=== PATIENT | male | born 1955 | race Caucasian/White ===

== ENCOUNTER → 2018-04-05 | Outpatient (CLI) | payer OTHER ==
[2018-04-05 16:00] LABS: Basophils # (auto) 0 uL; Basophils % (auto) 0.6 % (0.0-2.0); Eosinophils # (auto) 0.3 uL; Eosinophils % (auto) 3.8 % (0.0-7.0); Hematocrit 46.4 % (41.0-53.0); Hemoglobin 15.4 g/dL (13.5-17.5); Lymphocytes # (auto) 2.1 uL; Lymphocytes % (auto) 28.6 % (10.0-50.0); Mean Corpuscular Hemoglobin 30.1 pg (28.0-32.0); Mean Corpuscular Hgb Conc. 33.1 g/dL (32.0-36.0); Mean Corpuscular Volume 90.9 fL (80.0-100.0); Monocytes # (auto) 0.8 uL; Monocytes % (auto) 11.1 % (0.0-12.0); Neutrophils # (auto) 4.1 uL; Neutrophils % (auto) 55.9 % (37.0-80.0); Nucleated Red Blood Cells % 0.1 %; Platelet Count (auto) 281 10^3/uL (140-450); Red Blood Cells 5.11 10^6/uL (4.5-5.90); Red Cell Distribution Width 13.5 % (11.8-14.3); White Blood Cell 7.3 10^3/uL (4.4-10.8)
[2018-04-05 16:22] LABS: Albumin 3.2 g/dL (3.4-5.0); BUN/Creatinine Ratio 13.6; Calcium 10.1 mg/dL (8.5-10.1); Potassium 4.6 mmol/L (3.5-5.1)
[2018-04-05 16:26] LABS: Bilirubin, Total 1.5 mg/dL (0.2-1.0); Total Protein 9.3 g/dL (6.4-8.2)
== END | disposition home or self-care (01) ==
LOC: LAB 15:28
PROVIDERS: ATTEND Internal Medicine
DX: Z12.5 Encounter for screening for malignant neoplasm of prostate (principal); Z12.11 Encounter for screening for malignant neoplasm of colon; J18.0 Bronchopneumonia, unspecified organism; R63.0 Anorexia
CPT/HCPCS: 36415; 80053; 80061; 82306; 84153; 84443; 85025; 85652

== ENCOUNTER 2018-04-07 09:51 | Inpatient (IN) | payer OTHER ==
[~2018-04-07] VITALS: Ht 188 cm; Wt 102.1 kg
[2018-04-07] MEDS ORDERED: HEPARIN IN NS 1000U/500ML (2UNIT/ML) 500 ML BAG/KIT IV ONE (10:15)
[2018-04-07] MEDS ORDERED: SODIUM CHLORIDE 0.9% 1,000 ML IV ONE (10:15)
[2018-04-07 10:34] LABS: Basophils # (auto) 0 uL; Basophils % (auto) 0.7 % (0.0-2.0); Eosinophils # (auto) 0.2 uL; Eosinophils % (auto) 3.3 % (0.0-7.0); Hematocrit 40.3 % (41.0-53.0); Lymphocytes # (auto) 1.3 uL; Lymphocytes % (auto) 20.7 % (10.0-50.0); Mean Corpuscular Hemoglobin 30.7 pg (28.0-32.0); Mean Corpuscular Hgb Conc. 34.7 g/dL (32.0-36.0); Mean Corpuscular Volume 88.6 fL (80.0-100.0); Monocytes # (auto) 0.6 uL; Monocytes % (auto) 9.8 % (0.0-12.0); Neutrophils # (auto) 4.2 uL; Neutrophils % (auto) 65.5 % (37.0-80.0); Platelet Count (auto) 280 10^3/uL (140-450); Red Blood Cells 4.55 10^6/uL (4.5-5.90); Red Cell Distribution Width 13.4 % (11.8-14.3); White Blood Cell 6.4 10^3/uL (4.4-10.8)
[2018-04-07 10:53] LABS: Albumin 2.7 g/dL (3.4-5.0); Anion Gap 8 (5-15); Blood Urea Nitrogen 16 mg/dL (7-18); Calcium 8.8 mg/dL (8.5-10.1); Carbon Dioxide 24 mmol/L (21-32); Chloride 100 mmol/L (98-107); Glucose 111 mg/dL (74-106); Potassium 3.9 mmol/L (3.5-5.1); Sodium 132 mmol/L (136-145)
[2018-04-07 11:00] LABS: Alanine Aminotransferase 55 U/L (16-61); Alkaline Phosphatase 140 U/L (45-117); Aspartate Aminotransferase 39 U/L (15-37); BUN/Creatinine Ratio 13.1; Bilirubin, Total 1.2 mg/dL (0.2-1.0); GFR African American 77 mL/min; GFR Non-African American 64 mL/min; INR 0.96 (0.9-1.15); Partial Thromboplastin Time 28.6 sec (23.78-33.04); Prothrombin Time 10.3 sec (9.27-12.13); Total Protein 8.3 g/dL (6.4-8.2)
--- NOTE | 2018-04-07 15:05 | NUR ---
Respiratory note: ASSESSED PATIENT FOR PRN BREATHING TX, PATIENT IS AWAKE AND ALERT. NO RESPIRATORY DISTRESS NOTED OR STATED. PATIENT IS ON 2 L NASAL CANNULA, BREATH SOUNDS ARE CLEAR AND DIMINISHED. PATIENT IS AWARE OF PAGING RT FOR BREATHING TX. RN HANNAH NOTIFIED AND AWARE.
[2018-04-07] MEDS ORDERED: MORPHINE SULFATE 4 MG/ML SYR/VIAL IV PRN ×2 (15:30)
[2018-04-07] MEDS ORDERED: LACTULOSE 20Gm/30ML SOLN PO PRN (15:30)
[2018-04-07] MEDS ORDERED: LORazepam 0.5 MG TAB PO PRN (15:30)
[2018-04-07] MEDS ORDERED: TEMAZEPAM 15 MG CAP PO PRN (15:30)
[2018-04-07] MEDS ORDERED: PROMETHAZINE HCL 25 MG/ML 1ML IV PRN (15:30)
[2018-04-07] MEDS ORDERED: NITROGLYCERIN 0.4 MG SL TAB SL PRN (15:30)
[2018-04-07] MEDS ORDERED: ALBUTEROL SULF 2.5 MG/0.5ML(0.5%) NEB SOLN NEB PRN (15:30)
[2018-04-07] MEDS ORDERED: HYDROcodone-ACET 5/325MG TAB PO PRN (15:30)
[2018-04-07] MEDS ORDERED: ACETAMINOPHEN 500 MG TAB PO PRN (15:30)
[2018-04-07] MEDS ORDERED: LEVOFLOXACIN 500MG 100 ML IV ONE (15:45)
[2018-04-07 16:19] VITALS: BP 128/69
[2018-04-07] MEDS: ENOXAPARIN SOD 100 MG/1 ML SYRINGE SC SCH (17:46)
--- NOTE | 2018-04-07 17:57 | NUR ---
RT NOTE PRN ASSESSMENT DONE NO DISTRESS NOTED PT BS CLEAR SATS 98%. PT DOES NOT WANT ANYU BREATHING TREATMENTS.
[2018-04-07 18:09] LABS: Urine Bacteria NONE SEEN /hpf (None Seen); Urine Blood Negative /uL (Negative); Urine WBC 1 /hpf (0 - 3)
[2018-04-07 18:15] LABS: Urine Specific Gravity > 1.050 (1.001-1.035)
[2018-04-07 20:00] VITALS: BP 132/67
--- NOTE | 2018-04-07 20:00 | NUR ---
Telemetry admit from ER BETTY SETHI admitted to Telemetry unit after SBAR received. Patient oriented to Emely Meza primary RN, unit, room, bed, and unit policies regarding patient care and visiting hours. Patient now on continuous telemetry monitoring, tele box # 20 and telemetry reading on arrival to unit is sinus rhythm. Patient placed on bedside oxygen, weighed by bedscale and encouraged to call if they need something. All questions and concerns addressed, patient verbalized understanding.
[2018-04-07 20:15] VITALS: BP 132/67
[2018-04-07 20:30] VITALS: BP 132/67
[2018-04-07] MEDS ORDERED: LEVO-28 PO (23:43)
[2018-04-08 04:56] VITALS: BP 121/62
[2018-04-08] MEDS: ENOXAPARIN SOD 100 MG/1 ML SYRINGE SC SCH ×2 (05:54→18:18)
[2018-04-08 06:42] LABS: Basophils # (auto) 0 uL; Basophils % (auto) 0.7 % (0.0-2.0); Eosinophils # (auto) 0.2 uL; Eosinophils % (auto) 4.3 % (0.0-7.0); Hematocrit 35.4 % (41.0-53.0); Lymphocytes # (auto) 1.4 uL; Lymphocytes % (auto) 27.1 % (10.0-50.0); Mean Corpuscular Hemoglobin 30.2 pg (28.0-32.0); Mean Corpuscular Hgb Conc. 33.9 g/dL (32.0-36.0); Mean Corpuscular Volume 89.3 fL (80.0-100.0); Monocytes # (auto) 0.5 uL; Monocytes % (auto) 10.6 % (0.0-12.0); Neutrophils % (auto) 57.3 % (37.0-80.0); Platelet Count (auto) 248 10^3/uL (140-450); Red Blood Cells 3.97 10^6/uL (4.5-5.90); Red Cell Distribution Width 13.4 % (11.8-14.3); White Blood Cell 5.2 10^3/uL (4.4-10.8)
[2018-04-08 07:10] LABS: Cholesterol 145 mg/dL (< 200); HDL Cholesterol 26 mg/dL (40-59); LDL Cholesterol 109 mg/dL (< 100); Triglycerides 115 mg/dL (< 150)
--- NOTE | 2018-04-08 07:33 | NUR ---
Patient stable at this time, vitals within normal. Endorsed care to Justyna CASTRO.
[2018-04-08 09:17] VITALS: BP 108/55
[2018-04-08] MEDS ORDERED: LEVOFLOXACIN 500MG 100 ML IV SCH (10:00)
[2018-04-08] MEDS: PANTOPRAZOLE 40 MG TAB PO SCH (10:15)
[2018-04-08] MEDS ORDERED: VANCOMYCIN PER PHARMACY 0 MG IV SCH (12:00)
[2018-04-08 13:03] VITALS: BP 111/65
[2018-04-08] MEDS: PIPERACILLIN-TAZOB 3.375GM 100 ML IV SCH ×2 (14:15→20:45)
[2018-04-08 14:29] LABS: BUN/Creatinine Ratio 11.7; Calcium 8.4 mg/dL (8.5-10.1); Potassium 3.9 mmol/L (3.5-5.1)
[2018-04-08] MEDS: VANCOMYCIN 1GM/250ML 250 ML IV SCH ×2 (16:02→23:22)
[2018-04-08 17:26] VITALS: BP 140/72
--- NOTE | 2018-04-08 19:18 | NUR ---
Vancomycin still infusing, notified Annabelle ALCANTARA RN and endorsed zosyn
--- NOTE | 2018-04-08 19:20 | NUR ---
Opening Shift Note Assumed care of patient, awake and alert, fully clothed in his own outdoors clothing with jacket wrapped around his head. No S/S of distress/SOB or pain. Pt sl. warm to touch, but afebrile. Instructed on POC and to call for assist PRN, will continue to monitor for changes PRN. Bed in low position; nurse call light in bed by pt.
--- NOTE | 2018-04-08 20:00 | NUR ---
Spoke with Jason, pharmacist, to alert her that Vancomycin just hung at end of day shift and just infused and is appearing in [facility] to be due at 1 a.m. Jason stated that it was not due at 1 a.m. but 1 p.m. This RN assured her it is posted for 0100. Jason again stated that it is due at 1300 and not to be given at 0100.
--- NOTE | 2018-04-08 20:50 | NUR ---
Zosyn infusing as infusion of Vancomycin delayed this infusion.
--- NOTE | 2018-04-08 22:10 | NUR ---
Pt education: Pt asking about Lipitor and his cholesterol. This RN instructing pt as to action/benefit of Lipitor. Pt inquired as to cholesterol level, so RN explained re. LDL and HDL using his lab results and effect this has. Pt voiced that he will start changing his diet; "I am only 62, so it's time I start making some changes." He asked more questions of this RN re. diet and began to make plans using information he received.
[2018-04-08] MEDS: ATORVASTATIN 20 MG TAB PO SCH (23:04)
[2018-04-09 05:13] VITALS: BP 109/67
[2018-04-09] MEDS: ENOXAPARIN SOD 100 MG/1 ML SYRINGE SC SCH ×2 (07:17→18:07)
[2018-04-09 07:18] LABS: Basophils # (auto) 0 uL; Basophils % (auto) 0.7 % (0.0-2.0); Eosinophils # (auto) 0.2 uL; Eosinophils % (auto) 3.8 % (0.0-7.0); Hematocrit 36.2 % (41.0-53.0); Hemoglobin 12.2 g/dL (13.5-17.5); Lymphocytes # (auto) 1.7 uL; Lymphocytes % (auto) 29.8 % (10.0-50.0); Mean Corpuscular Hemoglobin 30.1 pg (28.0-32.0); Mean Corpuscular Hgb Conc. 33.7 g/dL (32.0-36.0); Mean Corpuscular Volume 89.5 fL (80.0-100.0); Monocytes # (auto) 0.5 uL; Monocytes % (auto) 9.2 % (0.0-12.0); Neutrophils # (auto) 3.2 uL; Neutrophils % (auto) 56.5 % (37.0-80.0); Platelet Count (auto) 301 10^3/uL (140-450); Red Blood Cells 4.04 10^6/uL (4.5-5.90); Red Cell Distribution Width 13.3 % (11.8-14.3); White Blood Cell 5.6 10^3/uL (4.4-10.8)
[2018-04-09] MEDS: PIPERACILLIN-TAZOB 3.375GM 100 ML IV SCH ×5 (07:18→23:31)
[2018-04-09 07:22] LABS: Potassium 3.7 mmol/L (3.5-5.1)
[2018-04-09 07:26] LABS: BUN/Creatinine Ratio 9.8; Calcium 8.6 mg/dL (8.5-10.1)
[2018-04-09 08:43] VITALS: BP 125/63
[2018-04-09] MEDS: PANTOPRAZOLE 40 MG TAB PO SCH (10:29)
[2018-04-09] MEDS: VANCOMYCIN 1,250 MG in D5W 5% 250 ML IV SCH ×2 (10:29→21:56)
[2018-04-09] MEDS: IPRATROPIUM BROM 0.5 MG/2.5ML INH SOL NEB SCH ×2 (12:36→19:12)
[2018-04-09] MEDS: ALBUTEROL SULF 2.5 MG/0.5ML(0.5%) NEB SOLN NEB SCH ×2 (12:37→19:12)
[2018-04-09 13:00] VITALS: BP 115/66
[2018-04-09 17:00] VITALS: BP 103/56
--- NOTE | 2018-04-09 19:16 | NUR ---
Respiratory note: NO CPT AT THIS TIME, CONTRAINDICATED PER DIAGNOSIS
--- NOTE | 2018-04-09 19:50 | NUR ---
ASSUMED CARE, PT. AWAKE, NO C/O PAIN, NO SOB.
[2018-04-09] MEDS: ATORVASTATIN 20 MG TAB PO SCH (21:56)
[2018-04-09 22:00] VITALS: BP 117/58
[2018-04-10] VITALS (7 sets, daily range): BP systolic 96–144; BP diastolic 52–74
[2018-04-10] MEDS: IPRATROPIUM BROM 0.5 MG/2.5ML INH SOL NEB SCH ×4 (00:20→19:12)
[2018-04-10] MEDS: ALBUTEROL SULF 2.5 MG/0.5ML(0.5%) NEB SOLN NEB SCH ×4 (00:20→19:12)
[2018-04-10] MEDS: PIPERACILLIN-TAZOB 3.375GM 100 ML IV SCH ×4 (05:31→23:40)
[2018-04-10] MEDS: ENOXAPARIN SOD 100 MG/1 ML SYRINGE SC SCH ×2 (05:32→18:45)
[2018-04-10 06:19] LABS: Basophils # (auto) 0 uL; Basophils % (auto) 0.7 % (0.0-2.0); Eosinophils # (auto) 0.3 uL; Eosinophils % (auto) 5.3 % (0.0-7.0); Hematocrit 35.4 % (41.0-53.0); Hemoglobin 11.7 g/dL (13.5-17.5); Lymphocytes # (auto) 1.4 uL; Mean Corpuscular Hemoglobin 29.4 pg (28.0-32.0); Monocytes # (auto) 0.5 uL; Monocytes % (auto) 10.9 % (0.0-12.0); Neutrophils # (auto) 2.6 uL; Neutrophils % (auto) 54.1 % (37.0-80.0); Platelet Count (auto) 306 10^3/uL (140-450); Red Blood Cells 3.97 10^6/uL (4.5-5.90); Red Cell Distribution Width 13.4 % (11.8-14.3); White Blood Cell 4.9 10^3/uL (4.4-10.8)
[2018-04-10 06:42] LABS: BUN/Creatinine Ratio 7.4; Calcium 8.3 mg/dL (8.5-10.1); Potassium 3.6 mmol/L (3.5-5.1)
--- NOTE | 2018-04-10 07:30 | NUR ---
Opening Shift Note Assumed care of patient, awake and alert. No S/S of distress/SOB or pain reported at this time. Instructed on POC and to call for assist PRN, call light within reach, IV to left AC patent and benign, will continue to monitor for changes Q1hr and PRN.
[2018-04-10] MEDS: PANTOPRAZOLE 40 MG TAB PO SCH (10:00)
[2018-04-10] MEDS ORDERED: VANCOMYCIN 1,250 MG in D5W 5% 250 ML IV SCH (13:00)
--- NOTE | 2018-04-10 14:35 | NUR ---
PT OFF UNIT TAKEN TO RADIOLOGY , PT AXOX4, NO DISTRESS NOTED, PT TAKEN VIA BED, ON 2L VIA NC
[2018-04-10] MEDS ORDERED: LIDOCAINE 2% (LOCAL ANESTH.) PF 5ml SDV ONE (14:49)
--- NOTE | 2018-04-10 16:07 | NUR ---
PT BACK FROM RADIOLOGY PER INSPECTOR [employer]OVERNMENT [employer]ERTY, THORACENTESIS COULD NOT BE COMPLETED THERE WAS NOT ENOUGH FLUID, PATIENT CONNECTED TO O2 @ 2L VIA NC, VS 144/77, P 88, O2 95%, RR 16, NO C/O PAIN, RIGHT POSTERIOR BACK, DRESSING CDI, PT INSTRUCTED TO CALL FOR ASSISTANCE OR OF ANY BLEEDING IS NOTED TO SITE, PT VERBALIZED UNDERSTANDING, CONT CARE
[2018-04-10] MEDS: VANCOMYCIN 1,250 MG in D5W 5% 250 ML IV SCH (16:10)
--- NOTE | 2018-04-10 16:35 | NUR ---
FAMILY AT BEDSIDE
[2018-04-10] MEDS: Ensure Enlive Strawberry 8oz Bottle PO SCH (18:00)
--- NOTE | 2018-04-10 19:45 | NUR ---
ASSUMED CARE, PT. AWAKE, NO C/O PAIN, BREATHING TREATMENT GOING ON, NO SOB.
[2018-04-10] MEDS: ATORVASTATIN 20 MG TAB PO SCH (21:07)
[2018-04-11] MEDS: VANCOMYCIN 1,250 MG in D5W 5% 250 ML IV SCH ×2 (02:47→15:00)
[2018-04-11 05:14] VITALS: BP 118/64
[2018-04-11] MEDS: ENOXAPARIN SOD 100 MG/1 ML SYRINGE SC SCH ×2 (05:30→18:17)
[2018-04-11] MEDS: PIPERACILLIN-TAZOB 3.375GM 100 ML IV SCH ×4 (05:30→23:42)
[2018-04-11 06:20] LABS: Basophils # (auto) 0 uL; Basophils % (auto) 0.8 % (0.0-2.0); Eosinophils # (auto) 0.3 uL; Eosinophils % (auto) 6.4 % (0.0-7.0); Hematocrit 33.9 % (41.0-53.0); Hemoglobin 11.6 g/dL (13.5-17.5); Lymphocytes # (auto) 1.2 uL; Lymphocytes % (auto) 25.8 % (10.0-50.0); Mean Corpuscular Hemoglobin 30.4 pg (28.0-32.0); Mean Corpuscular Hgb Conc. 34.2 g/dL (32.0-36.0); Mean Corpuscular Volume 88.9 fL (80.0-100.0); Monocytes # (auto) 0.5 uL; Monocytes % (auto) 10.6 % (0.0-12.0); Neutrophils # (auto) 2.6 uL; Neutrophils % (auto) 56.4 % (37.0-80.0); Nucleated Red Blood Cells % 0.1 %; Platelet Count (auto) 318 10^3/uL (140-450); Red Blood Cells 3.82 10^6/uL (4.5-5.90); Red Cell Distribution Width 13.4 % (11.8-14.3); White Blood Cell 4.7 10^3/uL (4.4-10.8)
[2018-04-11 06:39] LABS: BUN/Creatinine Ratio 7.8; Calcium 8.1 mg/dL (8.5-10.1); Potassium 3.7 mmol/L (3.5-5.1)
[2018-04-11] MEDS: ALBUTEROL SULF 2.5 MG/0.5ML(0.5%) NEB SOLN NEB SCH ×5 (07:07→18:52)
[2018-04-11] MEDS: IPRATROPIUM BROM 0.5 MG/2.5ML INH SOL NEB SCH ×5 (07:07→18:52)
[2018-04-11 08:00] VITALS: BP 103/60
[2018-04-11] MEDS: Ensure Enlive Strawberry 8oz Bottle PO SCH ×3 (08:16→18:18)
[2018-04-11 08:59] VITALS: BP 103/60
[2018-04-11] MEDS: PANTOPRAZOLE 40 MG TAB PO SCH (09:14)
--- NOTE | 2018-04-11 12:00 | NUR ---
IV insertion IV access obtained, via clean sterile technique by inserting 22 gauge catheter at left hand after 1 attempt. IV secured properly. No trauma to site. Patient tolerated procedure well.
[2018-04-11 12:41] VITALS: BP 115/65
--- NOTE | 2018-04-11 14:04 | NUR ---
NUTRITION ASSESSMENT NOTES Please refer to link notes of nutrition screen form filed under the intervention section of the plan of care for further details. Est. Needs: 2050 kcal to 2600 kcal (20-25 kcal/kgBW), 83 gms to 104 gms pro (0.8-1.0 gms/kgBW). Will continue to monitor pertinent labs and reassess nutrient needs prn Thank you. Addendum: 04/11/18 at [address] Amended: Links added.
[2018-04-11 17:00] VITALS: BP 113/68
--- NOTE | 2018-04-11 19:10 | NUR ---
assumed care, pt. awake, no c/o pain, no sob.
[2018-04-11] MEDS: ATORVASTATIN 20 MG TAB PO SCH (21:04)
[2018-04-11 22:00] VITALS: BP 124/65
[2018-04-12] MEDS: VANCOMYCIN 1,250 MG in D5W 5% 250 ML IV SCH ×2 (02:47→15:31)
[2018-04-12 05:00] VITALS: BP 130/61
[2018-04-12] MEDS: PIPERACILLIN-TAZOB 3.375GM 100 ML IV SCH ×4 (05:37→23:30)
[2018-04-12] MEDS: ENOXAPARIN SOD 100 MG/1 ML SYRINGE SC SCH ×2 (05:38→18:18)
[2018-04-12 06:20] LABS: INR 0.94 (0.9-1.15); Prothrombin Time 10.1 sec (9.27-12.13)
[2018-04-12 06:22] LABS: Basophils # (auto) 0 uL; Basophils % (auto) 0.9 % (0.0-2.0); Eosinophils # (auto) 0.4 uL; Eosinophils % (auto) 7.8 % (0.0-7.0); Hemoglobin 11.5 g/dL (13.5-17.5); Lymphocytes # (auto) 1.4 uL; Lymphocytes % (auto) 29.8 % (10.0-50.0); Mean Corpuscular Hemoglobin 29.9 pg (28.0-32.0); Mean Corpuscular Hgb Conc. 33.8 g/dL (32.0-36.0); Mean Corpuscular Volume 88.5 fL (80.0-100.0); Monocytes # (auto) 0.5 uL; Monocytes % (auto) 9.8 % (0.0-12.0); Neutrophils # (auto) 2.5 uL; Neutrophils % (auto) 51.7 % (37.0-80.0); Platelet Count (auto) 351 10^3/uL (140-450); Red Blood Cells 3.85 10^6/uL (4.5-5.90); Red Cell Distribution Width 13.4 % (11.8-14.3); White Blood Cell 4.8 10^3/uL (4.4-10.8)
[2018-04-12 06:27] LABS: Albumin 2.2 g/dL (3.4-5.0); BUN/Creatinine Ratio 8.7; Calcium 8.1 mg/dL (8.5-10.1); Potassium 3.6 mmol/L (3.5-5.1)
[2018-04-12 06:30] LABS: Bilirubin, Total 0.4 mg/dL (0.2-1.0); Total Protein 7.4 g/dL (6.4-8.2)
--- NOTE | 2018-04-12 07:25 | NUR ---
Opening Shift Note Assumed care of patient, currently sleeping, easily awakened via verbal stimuli. No S/S of distress/SOB or pain reported at this time. Instructed on POC and to call for assist PRN, call light within reach, IV to left AC patent and benign, will continue to monitor for changes Q1hr and PRN. Addendum: 04/12/18 at 1912 by Shalini Garcia RN IV to left hand 22g
[2018-04-12] MEDS: ALBUTEROL SULF 2.5 MG/0.5ML(0.5%) NEB SOLN NEB SCH ×3 (07:33→19:07)
[2018-04-12] MEDS: IPRATROPIUM BROM 0.5 MG/2.5ML INH SOL NEB SCH ×3 (07:33→19:07)
[2018-04-12 08:00] VITALS: BP 118/65
[2018-04-12] MEDS: Ensure Enlive Strawberry 8oz Bottle PO SCH ×3 (08:00→18:16)
[2018-04-12 08:41] VITALS: BP 109/69
[2018-04-12] MEDS: PANTOPRAZOLE 40 MG TAB PO SCH (10:44)
[2018-04-12 12:39] VITALS: BP 118/65
--- NOTE | 2018-04-12 15:23 | NUR ---
FOLLOW UP FOR GEOPHYSICAL LABORATORY CHIEF CONSULT SPOKE WITH DR WING , HES STATES " IM CURRENTLY BUSY, NOT SURE WHEN I WILL GET TO IT", PAGED DR ARREOLA TO NOTIFY HIM, CONT CARE
--- NOTE | 2018-04-12 15:29 | NUR ---
MD CALL BACK SPOKE WITH DR MAXWELL MD STATES HE WILL NOT RE-CONSULT ANOTHER CLERK GUIDE AND WILL WAIT UNTIL DR WING SEE PATIENT, CONT CARE
[2018-04-12 16:54] VITALS: BP 105/66
--- NOTE | 2018-04-12 19:00 | NUR ---
ASSUMED CARE, PT. AWAKE, NO C/O PAIN, NO SOB.
[2018-04-12] MEDS: ATORVASTATIN 20 MG TAB PO SCH (21:02)
[2018-04-12 22:00] VITALS: BP 119/64
[2018-04-13] MEDS: VANCOMYCIN 1,250 MG in D5W 5% 250 ML IV SCH ×2 (02:50→15:45)
--- NOTE | 2018-04-13 04:10 | NUR ---
REPORT RECEIVED FROM AYAZ CASTRO, WILL ASSUME PT CARE.
--- NOTE | 2018-04-13 04:17 | NUR ---
report given to jil warren.
[2018-04-13 05:00] VITALS: BP 124/62
[2018-04-13 05:41] LABS: Basophils # (auto) 0 uL; Basophils % (auto) 0.7 % (0.0-2.0); Eosinophils # (auto) 0.4 uL; Eosinophils % (auto) 8.4 % (0.0-7.0); Hematocrit 36.3 % (41.0-53.0); Hemoglobin 11.9 g/dL (13.5-17.5); Lymphocytes # (auto) 1.5 uL; Lymphocytes % (auto) 31.6 % (10.0-50.0); Mean Corpuscular Hemoglobin 29.1 pg (28.0-32.0); Mean Corpuscular Hgb Conc. 32.8 g/dL (32.0-36.0); Mean Corpuscular Volume 88.8 fL (80.0-100.0); Monocytes # (auto) 0.5 uL; Monocytes % (auto) 9.9 % (0.0-12.0); Neutrophils # (auto) 2.3 uL; Neutrophils % (auto) 49.4 % (37.0-80.0); Nucleated Red Blood Cells % 0.1 %; Platelet Count (auto) 379 10^3/uL (140-450); Red Blood Cells 4.08 10^6/uL (4.5-5.90); Red Cell Distribution Width 13.6 % (11.8-14.3); White Blood Cell 4.6 10^3/uL (4.4-10.8)
[2018-04-13] MEDS: PIPERACILLIN-TAZOB 3.375GM 100 ML IV SCH ×3 (05:48→18:43)
[2018-04-13] MEDS: ENOXAPARIN SOD 100 MG/1 ML SYRINGE SC SCH ×2 (05:49→18:42)
[2018-04-13 06:08] LABS: BUN/Creatinine Ratio 9.1; Calcium 8.6 mg/dL (8.5-10.1)
[2018-04-13] MEDS: IPRATROPIUM BROM 0.5 MG/2.5ML INH SOL NEB SCH ×4 (06:31→19:20)
[2018-04-13] MEDS: ALBUTEROL SULF 2.5 MG/0.5ML(0.5%) NEB SOLN NEB SCH ×4 (06:32→19:20)
--- NOTE | 2018-04-13 07:30 | NUR ---
Opening Shift Note Assumed care of patient, currently sleeping, easily awakened via verbal stimuli. No S/S of distress/SOB or pain reported at this time. Currently on 2L via NC. Instructed on POC and to call for assist PRN, call light within reach, IV to left hand patent and benign, will continue to monitor for changes Q1hr and PRN
[2018-04-13 08:00] VITALS: BP 114/61
[2018-04-13] MEDS: Ensure Enlive Strawberry 8oz Bottle PO SCH ×3 (08:00→18:00)
[2018-04-13 08:47] VITALS: BP 114/61
--- NOTE | 2018-04-13 11:05 | NUR ---
PULMONOLOGY SPOKE WITH DR WING REGARDING CONSULT, MD [id number] "I TO SEE HIS PATIENTS AND THEN HE WILL TRY", CONT CARE
[2018-04-13] MEDS: PANTOPRAZOLE 40 MG TAB PO SCH (11:12)
--- NOTE | 2018-04-13 12:55 | NUR ---
AT BEDSIDE DR MACHUCA AT BEDSIDE, AWARE PULMONOLOGY CONSULT STILL PENDING, PER DR MACHUCA STATES HE WILL CONSULT DR WELCH AND WILL CALL HIM HIMSELF. CONT CARE
[2018-04-13 13:00] VITALS: BP 156/56
[2018-04-13 17:00] VITALS: BP 126/77
--- NOTE | 2018-04-13 19:05 | NUR ---
DR WELCH AT BEDSIDE
--- NOTE | 2018-04-13 19:30 | NUR ---
Dr. Hamilton at Bedside for Orders This RN at bedside with Dr. Hamilton discussing POC with patient. Verbal orders received, read back and verified. Will follow out orders see eMAR.
--- NOTE | 2018-04-13 19:45 | NUR ---
Opening Shift Note Assumed care of patient, awake and alert x4. Respirations even and unlabored. No S/S of distress or SOB on 2L N/C. Denies need for pain medication at this time. Bed locked in lowest position call light within reach. Instructed on POC and to call for assist PRN, will continue to monitor for changes Q1hr and PRN.
[2018-04-13] MEDS: ATORVASTATIN 20 MG TAB PO SCH (21:57)
[2018-04-13 22:00] VITALS: BP 104/55
[2018-04-14] MEDS: IPRATROPIUM BROM 0.5 MG/2.5ML INH SOL NEB SCH ×4 (00:42→19:20)
[2018-04-14] MEDS: ALBUTEROL SULF 2.5 MG/0.5ML(0.5%) NEB SOLN NEB SCH ×4 (00:42→19:20)
[2018-04-14 05:08] VITALS: BP 104/51
[2018-04-14 09:00] VITALS: BP 130/60
[2018-04-14] MEDS: Ensure Enlive Strawberry 8oz Bottle PO SCH ×2 (09:02→16:48)
[2018-04-14] MEDS: PANTOPRAZOLE 40 MG TAB PO SCH (09:02)
[2018-04-14] MEDS ORDERED: LEVOFLOXACIN 500 MG TAB PO SCH (10:00)
[2018-04-14] MEDS ORDERED: RIVAROXABAN 15 MG TAB PO SCH (10:00)
--- NOTE | 2018-04-14 11:29 | NUR ---
dr jones in with patient
[2018-04-14 13:00] VITALS: BP 124/64
[2018-04-14 13:33] VITALS: BP 124/64
== END 2018-04-14 15:30 | disposition home or self-care (01) | DRG 177 ==
LOC: ER 09:52 → TELE 15:27 → TELE-WESTW 20:10
PROVIDERS: ADMIT Internal Medicine; ATTEND Family Medicine
PROC: 0WJ93ZZ Inspection of Right Pleural Cavity, Percutaneous Approach (ICD-10-PCS; principal; 2018-04-10)
DX: J69.0 Pneumonitis due to inhalation of food and vomit (principal); N17.0 Acute kidney failure with tubular necrosis; I26.99 Other pulmonary embolism without acute cor pulmonale; J96.90 Respiratory failure, unspecified, unspecified whether with hypoxia or hypercapnia; J86.9 Pyothorax without fistula; J90 Pleural effusion, not elsewhere classified; J98.11 Atelectasis; E87.1 Hypo-osmolality and hyponatremia; I82.402 Acute embolism and thrombosis of unspecified deep veins of left lower extremity; E44.0 Moderate protein-calorie malnutrition; E78.5 Hyperlipidemia, unspecified; N18.9 Chronic kidney disease, unspecified; Z68.29 Body mass index [BMI] 29.0-29.9, adult; Z79.01 Long term (current) use of anticoagulants; Z87.891 Personal history of nicotine dependence
CPT/HCPCS: 10022; 32555; 36415; 71045; 71046; 71250; 76604; 80048; 80053; 80061; 80202; 81001; 81241; 84443; 84484; 85025; 85610; 85613; 85670; 85705; 85730; 85732; 87040; 87804; 93005; 93306; 93970; 94640; 94668; 96361; 96365; 96375; G0378; J1642; J1956; J2001; J2543; J7060

== ENCOUNTER → 2018-05-15 | Outpatient (CLI) | payer OTHER ==
[~2018-05-15] MED LIST: LEVO-28 PO
== END | disposition home or self-care (01) ==
LOC: LAB 10:02
PROVIDERS: ATTEND Internal Medicine
DX: J18.0 Bronchopneumonia, unspecified organism (principal); Z86.711 Personal history of pulmonary embolism
CPT/HCPCS: 36415; 82565; 84520